=== PATIENT | male | born 2000 | race Asian ===

== ENCOUNTER 2025-05-03 22:29 | Observation (INO) | payer OTHER ==
[2025-05-03 22:54] VITALS: RESP 18; BMI 43.0
[2025-05-03] MEDS: SODIUM CHLORIDE 0.9% 500 ML INFUS.BAG IV ONE (22:56)
[2025-05-03 23:02] LABS: ABSOLUTE IMMATURE GRANULOCYTES 0.03 x10^3/uL (0.0-0.031); BASOPHILS # 0.03 x10^3/uL (0.01-0.08); EOSINOPHIL % 0.9 % (0.8-7.0); EOSINOPHILS # 0.13 x10^3/uL (0.04-0.54); MCHC 32.7 g/dl (32.3-36.5); MEAN CELL VOLUME 85.1 fl (79.0-92.2); MEAN PLT VOLUME 8.9 fl (9.4-12.4); MONOCYTE # 1.16 x10^3/uL (0.30-0.82); MONOCYTE % 7.9 % (5.3-12.2); RDW 13.0 % (11.9-15.3)
[2025-05-03 23:23] LABS: ALK PHOS 78 U/L (45-117); CO2 26 mmol/L (21-32); CREATININE 0.9 mg/dl (0.6-1.3); GLUCOSE,RANDOM 116 mg/dl (74-106); SGOT/AST 22 U/L (15-37); SGPT/ALT 21 U/L (7-52); TOT PROT 7.7 g/dl (6.4-8.2)
[2025-05-04 04:13] LABS: COCAINE, UR NEGATIVE (NEGATIVE)
[2025-05-04 04:14] LABS: METHADONE, UR NEGATIVE (NEGATIVE)
[2025-05-04 04:15] LABS: URINE BARBITURATES NEGATIVE (NEGATIVE)
[2025-05-04 04:23] LABS: OPIATES, URI NEGATIVE (NEGATIVE); PHENCYCLIDINE,URINE NEGATIVE (NEGATIVE); URINE AMPHETAMINES NEGATIVE (NEGATIVE); URINE BENZODIAZEPINES NEGATIVE (NEGATIVE)
[2025-05-04] MEDS: SODIUM CHLORIDE 1,000 ML IV SCH (08:24)
[2025-05-04 08:45] LABS: ABSOLUTE IMMATURE GRANULOCYTES 0.04 x10^3/uL (0.0-0.031); BASOPHILS # 0.04 x10^3/uL (0.01-0.08); EOSINOPHIL % 0.1 % (0.8-7.0); EOSINOPHILS # 0.02 x10^3/uL (0.04-0.54); MCHC 32.2 g/dl (32.3-36.5); MEAN CELL VOLUME 87.2 fl (79.0-92.2); MEAN PLT VOLUME 10.0 fl (9.4-12.4); MONOCYTE # 0.79 x10^3/uL (0.30-0.82); MONOCYTE % 4.8 % (5.3-12.2); RDW 13.3 % (11.9-15.3)
[2025-05-04 09:11] LABS: CO2 26.0 mmol/L (21-32); CREATININE 0.6 mg/dl (0.6-1.3); GLUCOSE,RANDOM 91.0 mg/dl (74-106)
[2025-05-04 10:15] VITALS: BP 123/85; PULSE 67; TEMP 98.4
[2025-05-04] MEDS: SODIUM ZIRCONIUM CYCLOSILICATE (LOKELMA) 5 GM PACKET PO ONE (10:54)
== END 2025-05-04 11:53 | disposition home or self-care (01) ==
LOC: FER 22:29 → FM/S 05-04 00:53
PROVIDERS: ADMIT Student in an Organized Health Care Education/Training Program; ATTEND Internal Medicine
PROC: 3E0337Z Introduction of Electrolytic and Water Balance Substance into Peripheral Vein, Percutaneous Approach (ICD-10-PCS; principal; 2025-05-04)
DX: F41.0 Panic disorder [episodic paroxysmal anxiety] (principal); F12.90 Cannabis use, unspecified, uncomplicated; R00.0 Tachycardia, unspecified
CPT/HCPCS: 36415; 71045-TC-FY; 80048; 80053; 80307; 84484; 85025; 99285-25; G0378